=== PATIENT | male | born 2000 | race Caucasian/White ===

== ENCOUNTER 2023-12-23 12:19 | Emergency (ER) | payer SELFPAY ==
[~2023-12-23] VITALS: Ht 182.9 cm; Wt 70.3 kg
[2023-12-23 12:19] VITALS: BP 108/69; TEMP 96.6; O2SAT 96
== END 2023-12-23 12:25 | disposition left against medical advice (07) ==
LOC: M ED 12:19
DX: Z53.21 Procedure and treatment not carried out due to patient leaving prior to being seen by health care provider (principal)